=== PATIENT | female | born 1970 | race Caucasian/White ===

== ENCOUNTER → 2017-05-22 | Outpatient (CLI) | payer OTHER | END | disposition home or self-care (01) | LOC: PCVCIMAG 16:02 | PROVIDERS: ATTEND Internal Medicine Cardiovascular Disease | DX: I10 Essential (primary) hypertension (principal); J45.909 Unspecified asthma, uncomplicated; E78.5 Hyperlipidemia, unspecified; F41.9 Anxiety disorder, unspecified | CPT/HCPCS: 93325; 93351 ==

== ENCOUNTER → 2017-05-25 | Outpatient (CLI) | payer OTHER ==
--- NOTE | 2017-05-25 09:49 | PCVCIMAG ---
APPROVED REPORT Patient Location: Out-Patient Doppler Spectral Velocity Analysis PSV / EDVPSV / EDV ECA (R) 91 / 123 cm/sECA (L) 103 / 19 cm/s pICA (R) 86 / 26 cm/spICA (L) 93 / 30 cm/s dCCA (R) 100 / 26 cm/sdCCA (L) pCCA (R) pCCA (L) 100 / 33 cm/s Vert (R) 40 / cm/sVert (L) 47 / cm/s ICA/CCA 0.86 ICA/CCA Basic Measurements Blood Pressure: Pulses: Right Left RightLeft Brachial(Sitting) 122/07xtYo064/78mmHgTemporal Findings The right carotid bulb has mild plaque. The right proximal internal carotid artery shows no significant stenosis. The right common carotid artery shows no significant stenosis. The right external carotid artery shows no significant stenosis. The left carotid bulb has mild plaque. The left proximal internal carotid artery shows no significant stenosis. The left common carotid artery shows no significant stenosis. The left external carotid artery shows no significant stenosis. Conclusion 1. Mild plaquing involving both carotid bulbs without significant stenosis 2. Antegrade vertebral flow
--- NOTE | 2017-05-25 10:20 | PCVCIMAG ---
EXAM: ABDOMINAL ULTRASOUND COMPLETE INDICATION: Abdominal pain FINDINGS: Gallbladder: No gallstones. No wall thickening or abnormal pericholecystic fluid. Liver: Normal in size measuring 15.6 cm in length. No focal masses. Bile ducts: No intra or extra hepatic bile duct dilatation. The common bile duct measures 1.7 mm. Pancreas: Unremarkable where seen. Spleen: Normal in size measuring 9.6 cm in greatest dimension. No focal masses. Right kidney: No hydronephrosis. Length measures 11.9 cm. Left kidney: No hydronephrosis. Length measures 11.7 cm. Inferior vena cava: Normal in size where seen. Aorta: Normal in caliber where seen. IMPRESSION: Unremarkable abdominal ultrasound. LOC:[id number]
== END | disposition home or self-care (01) ==
LOC: PCVCIMAG 08:02
PROVIDERS: ATTEND Internal Medicine Cardiovascular Disease
DX: I65.23 Occlusion and stenosis of bilateral carotid arteries (principal); R10.84 Generalized abdominal pain; E78.4 Other hyperlipidemia
CPT/HCPCS: 76700; 93880